=== PATIENT | male | born 1945 | race Caucasian/White ===

== ENCOUNTER → 2016-08-26 | Outpatient (CLI) | payer OTHER ==
[~2016-08-26] MED LIST: DIOVAN HCT 160-1 TAB; LEVAQUIN PO; LORTAB 7.5-5001 TAB PO
--- NOTE | ~2016-08-26 | TH ---
Unit #: [id number] #: [id number] Patient: DARA PIÑA [id number] [address] [address] [id number] O MR#: [id number] NAME: DARA PIÑA. : 1945 SEX: M STUDY DATE/TIME: UNIT: [facility] ROOM: STUDY DESCRIPTION: Nuclear Study Attending Physician: Mely Giron M.D. Referring Physician: Mely Giron M.D. Primary Care Physician: Mely Giron M.D. CARDIOLOGY REPORT EXAM Lexiscan Cardiolite Stress Test - Nuclear Portion DESCRIPTION Using technetium 99m labeled Cardiolite, rest and stress SPECT images were obtained. Multiple SPECT images were obtained in various views including horizontal and vertical long axis and short axis views of the left ventricle. Images were obtained by gated SPECT method. The patient was administered 9.33 mCi of Cardiolite at rest. The patient was administered 31.5 mCi of Cardiolite after Lexiscan infusion was completed. On the stress images, there is normal perfusion noted. The rest images show normal perfusion. Comparing res and stress images, there is no stress-induced ischemia noted. The left ventricular ejection fraction is calculated to be 54%. There is no focal wall motion abnormality seen. The left ventricular cavity is mild to moderately dilated, both at rest and post stress. CONCLUSION 1. No obvious stress-induced ischemia noted. 2. The left ventricular ejection fraction is calculated to be 54%. 3. There is no focal wall motion abnormality seen. 4. The left ventricular cavity is mild to moderately dilated, both at rest and post stress. 5. Technically limited study due to patient's body habitus. Clinical correlation is requested. Dictated by... Sergio Nguyen TD: 08/26/2016 12:54 JOB #: [id number] Unit #: [id number] #: [id number] Patient: DARA PIÑA CARDIOLOGY REPORT Page 1 of 1 X Loly Mcdonald MD <ELECTRONICALLY SIGNED> 10/30/16 1429 CARDIOLOGY REPORT
--- NOTE | ~2016-08-26 | ST ---
Unit #: [id number] #: [id number] Patient: DARA PIÑA [id number] [address] [address] [id number] O MR#: [id number] NAME: DARA PIÑA. : 1945 SEX: M STUDY DATE/TIME: 08/26/2016 UNIT: [facility] ROOM: STUDY DESCRIPTION: Stress Test Attending Physician: Mely Giron M.D. Referring Physician: Mely Giron M.D. Primary Care Physician: Mely Giron M.D. CARDIOLOGY REPORT EXAM Walking Lexiscan Cardiolite stress test. FINDINGS Baseline EKG shows normal sinus rhythm with a rate of 66 beats per minute. Lexiscan was injected immediately followed by Cardiolite while the patient ambulated on the treadmill for a total of 4 minutes. He had no complaints of chest pain, palpitations, or dizziness. EKG during Lexiscan showed no ST-T wave abnormalities. It was noted for occasional premature ventricular complex. Maximum blood pressure response 184/91 mmHg. Baseline blood pressure 173/86 mmHg. Please correlate these results with nuclear images. Dictated by... Rodri Van A.P.R.N. for Sergio Nguyen/jer TD: 08/26/2016 11:40 JOB #: [id number] CARDIOLOGY REPORT Page 1 of 1 X Rodri Van APRN CARDIOLOGY REPORT
== END | disposition home or self-care (01) ==
LOC: CNUC 08:16
DX: R94.31 Abnormal electrocardiogram [ECG] [EKG] (principal); I51.7 Cardiomegaly; R00.2 Palpitations
CPT/HCPCS: 78452; 93017; A9500; J2785